=== PATIENT | female | born 1950 | race Caucasian/White ===

== ENCOUNTER 2016-03-08 07:51 | Emergency (ER) | payer OTHER, BC ==
[~2016-03-08] VITALS: Ht 149.9 cm; Wt 89.9 kg
[~2016-03-08 07:51] MED LIST: PROTONIX40 MG PO; THYROID
[2016-03-08 08:33] LABS: ADD MIUA? YES; BILIRUBIN NEGATIVE; BLOOD LARGE; COLOR YELLOW ((YELLOW)); GLUCOSE (STRIP) NEGATIVE; KETONES NEGATIVE; LEUKOCYTES LARGE; NITRITE NEGATIVE; PH, URINE 5.5 (5-8); PROTEIN (STRIP) 100; SPECIFIC GRAVITY 1.022 (1.000-1.030); UROBILINOGEN 0.2 MG/DL (0.2-1.0)
[2016-03-08 08:51] LABS: BACTERIA NONE SEEN; CASTS NONE SEEN /LPF; CRYSTALS NONE SEEN; EPITHELIAL CELLS RARE; MUCUS NONE SEEN; PATHOLOGICAL CAST NONE SEEN; RED BLOOD CELLS TNTC /HPF (0-5); SMALL ROUND CELL NONE SEEN; WHITE BLOOD CELLS TNTC /HPF (0-5); YEAST-LIKE CELL NONE SEEN
[2016-03-08] MEDS ORDERED: KEFLEX500 MG PO (09:19)
[2016-03-08] MEDS ORDERED: PYRIDIUM100 MG PO (09:19)
[2016-03-08 09:26] VITALS: BP 130/87
== END 2016-03-08 09:28 | disposition home or self-care (01) ==
LOC: EME 07:51
PROVIDERS: Physician Assistant
DX: N39.0 Urinary tract infection, site not specified (principal); Z87.442 Personal history of urinary calculi
CPT/HCPCS: 74000; 81003; 87077; 87086; 87186; 99281; 99283

== ENCOUNTER → 2016-03-28 | Outpatient (CLI) | payer OTHER, BC ==
[~2016-03-28] VITALS: Ht 149.9 cm; Wt 90.7 kg
[~2016-03-28] MED LIST changes: +ARMOUR THYROID240 MG PO; +ERGOCALCIF50000 UNIT PO; +FLAX OIL1000 MG PO; +KEFLEX500 MG PO; +LORATADINE10 M2 PO; +PYRIDIUM100 MG PO
== END | disposition home or self-care (01) ==
LOC: AMB 03-14 10:30 → OPR 03-14 12:00 → AMB 08:24
PROC: 0DBE8ZZ Excision of Large Intestine, Via Natural or Artificial Opening Endoscopic (ICD-10-PCS; principal; 2016-03-28)
DX: R10.32 Left lower quadrant pain (principal); K59.00 Constipation, unspecified; D12.5 Benign neoplasm of sigmoid colon; K57.90 Diverticulosis of intestine, part unspecified, without perforation or abscess without bleeding; K64.8 Other hemorrhoids; E03.9 Hypothyroidism, unspecified; E11.9 Type 2 diabetes mellitus without complications; E55.9 Vitamin D deficiency, unspecified
CPT/HCPCS: 88305; J2405